=== PATIENT | female | born 1945 | race Caucasian/White ===

== ENCOUNTER 2018-11-27 23:07 | Observation (INO) ==
--- NOTE | 2018-11-27 23:33 | ERNOTE ---
Medical Problem HPI - Narrative Date of Service: 11/27/18 - General Chief Complaint: Fever Time Seen by Provider: 11/27/18 23:21 Source: patient Exam Limitations: no limitations - Immun/Allergies/Home Medications Immunizations: IMMUNIZATION HX Immunizations Up to Date Yes History of Influenza Vaccine Yes Hx Pneumococcal Vaccination No Allergies/Adverse Reactions: Allergies enalapril Allergy (Verified 11/25/18 09:55) rash/hives hydrochlorothiazide Allergy (Verified 11/25/18 09:55) uknown lisinopril Allergy (Verified 11/25/18 09:55) unknown ramipril [From Altace] Allergy (Verified 11/25/18 09:55) unknown Home Medications: HOME MEDICATIONS aspirin 81 mg tablet,delayed release 81 mg PO DAILY 10/29/17 [Last Taken Unknown] cholecalciferol (vitamin D3) 1,000 unit capsule 1,000 unit PO DAILY 10/29/17 [Last Taken Unknown] cinnamon bark 500 mg capsule 1,000 mg PO DAILY cap 10/29/17 [Last Taken Unknown] diltiazem CD 240 mg capsule,extended release 24 hr 240 mg PO DAILY 10/29/17 [Last Taken Unknown] vitamin B complex tablet 1 tab PO DAILY 10/29/17 [Last Taken Unknown] melatonin 3 mg tablet 3 mg PO HS 01/25/18 [Last Taken Unknown] metformin 500 mg tablet See Rx Instructions .ROUTE .COMPLEX #360 tablet 02/14/18 [Last Taken Unknown] ibuprofen 400 mg tablet 400 mg PO BID PRN #60 tab 04/01/18 [Last Taken Unknown] diphenhydramine 25 mg tablet 25 mg PO Q8H PRN #30 tab 06/13/18 [Last Taken Unknown] atorvastatin 40 mg tablet 80 mg PO DAILY #180 tab 08/31/18 [Last Taken Unknown] rabeprazole 20 mg tablet,delayed release 20 mg PO DAILY #90 tab 08/31/18 [Last Taken Unknown] potassium chloride ER 20 mEq tablet,extended release 40 meq PO ONCE #1 tab 11/24/18 [Last Taken Unknown] chlorthalidone 25 mg tablet 25 mg PO DAILY #90 tab 11/25/18 [Last Taken Unknown] glimepiride 4 mg tablet 8 mg PO DAILY #180 tab 11/25/18 [Last Taken Unknown] hydroxyzine HCl 25 mg tablet 25 mg PO Q8H PRN 11/25/18 [Last Taken Unknown] levothyroxine 50 mcg capsule 50 mcg PO DAILY #90 cap 11/25/18 [Last Taken Unknown] losartan 100 mg tablet 100 mg PO DAILY #90 tab 11/25/18 [Last Taken Unknown] sertraline 100 mg tablet 150 mg PO DAILY #135 tab 11/25/18 [Last Taken Unknown] sitagliptin 100 mg tablet 100 mg PO DAILY #90 tab 11/25/18 [Last Taken Unknown] - History of Present History Narrative: 73-year-old female comes in complaining of elevated temperature today she states she woke up this morning she was fine earlier in the day went for flu shot after the flu shot is she is been feeling she says crappy but nonspecific generalized aches and pains and a cough nonproductive and and vomited a few times Date (Duration): 11/27/18 Time (Timing): 23:30 Timing: constant Severity: moderate Review of Systems - Review of Systems Constitutional: Present: fever, weakness EYE: Present: no symptoms reported ENT: Present: no symptoms reported Respiratory: Present: cough Cardiology: Present: no symptoms reported Gastrointestinal/Abdominal: Present: no symptoms reported Genitourinary: Present: no symptoms reported Musculoskeletal: Present: no symptoms reported Skin: Present: no symptoms reported Neurological: Present: no symptoms reported Endocrine: Present: no symptoms reported Hematologic/Lymphatic: Present: no symptoms reported Psych: Present: no symptoms reported All Other Systems: All systems neg except as marked Medical History (Updated 10/24/18 @ 10:30 by Bret Mathews MD) 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) Wrist pain, left (Acute) Onset Date: ~08/2017 Anxiety and depression Onset Date: Unknown Aortic stenosis, moderate Onset Date: ~09/2016 Arthritis Onset Date: Unknown Diabetes Onset Date: 01/15/14 Type II Fracture, radius, distal 10/02/2016 Closed intra-articular fx distal end of rt radius, initial encounter GERD (gastroesophageal reflux disease) Onset Date: Unknown HTN (hypertension) Onset Date: Unknown Hyperlipidemia Onset Date: Unknown Obesity Onset Date: Unknown BMI -35.38 Sleep apnea Onset Date: 08/05/14 nasal CPAP 1 cm H20 (sleep studies) Surgical History: Surgical History (Updated 09/12/17 @ 10:46 by Shana Bautista) History of carpal tunnel release 11/08, 03/13 Right, left by Dr. López History of echocardiogram Onset Date: 10/21/15 ER 60-65% History of total knee arthroplasty Lt TKA (2006), Rt TKA (2011) History of total vaginal hysterectomy (TVH) Onset Date: ~06/1979 TVH/BSO Uterine tumor - benign Hx of cardiac catheterization 2006; 05/22/[address] Rodrigues [facility]-normal LV function, EF+65%, normal coronary arteriography, left dominant circulation Hx of colonoscopy 02/10/2011 Normal - Dr. Rainey Hx of hand surgery Trigger Finger Release - bilateral hands- unsure of date Hx of tonsillectomy Onset Date: ~1951 Family History: Family History (Updated 09/12/17 @ 10:47 by Shana Bautsita) Father , Age 93 Diabetes Heart disease Heart valve replacement age 85 Mother , Age 50 Diabetes Cancer Bone Ca Social History: (Last Reviewed 11/27/18 @ 23:19 by Sheila Moon RN) Social History: Marital status: household members: spouse current occupational status: retired Service: No Tobacco: Smoking Status: Never smoker Alcohol: alcohol intake: never Substance Use: substance use type: does not use Dietary Habits: caffeine: Yes caffeine comment: Current every day 1/day iced tea, diet pepsi, sunkist orange Physical Exam - Physical Exam General Appearance: Present: wd/wn, alert, mild distress Head Exam: Present: normal inspection, no evidence of injury Eye Exam: Normal inspection: bilateral Ears, Nose, Throat: Present: nasal congestion, dry mucous membranes Neck: Present: normal inspection, nontender Respiratory: Present: normal breath sounds, no accessory muscle use, chest nontender Cardiovascular/Chest: Present: tachycardia, systolic murmur Peripheral Pulses: N=norm/S=strong/W=weak/B=bound/A=absent: Carotid (R): Normal, Carotid (L): Normal Gastrointestinal/Abdominal: Present: normal bowel sounds, nontender Back Exam: Present: normal inspection, normal range of motion Extremity Exam: Present: normal inspection, normal except - Neurological Exam: Present: alert, oriented Skin Exam: Present: normal color, warm/dry Lymphatic Exam: Present: no adenopathy Progress - Results and Orders Patient's Lab Results:: I have reviewed the patient's lab results. Results and Orders: Laboratory Tests 11/27/18 11/27/18 11/27/18 23:32 23:32 23:33 WBC 6.7 RBC 4.44 Hgb 12.4 L Hct 37.6 MCV 84.7 MCH 27.9 Plt Count 186 Neutrophils % 87.3 H Lymphocytes % 6.1 L Sodium Plasma Sodium Potassium Chloride Carbon Dioxide BUN Creatinine Est GFR (Non-Af Amer) Random Glucose Lactic Acid, Venous Urine Color Yellow Urine Appearance Slightly cloudy Urine pH 8.0 H Urine Protein Negative Urine Glucose (UA) Negative Urine Ketones Negative Urine Blood Negative Urine Nitrate Negative Urine Bilirubin Negative Ur Leukocyte Esterase 25 H Urine RBC None seen Urine WBC 5-10 H Group A Strep Rapid Negative 11/27/18 11/27/18 23:55 23:55 WBC RBC Hgb Hct MCV MCH Plt Count Neutrophils % Lymphocytes % Sodium 134 Plasma Sodium 135 Potassium 3.4 Chloride 95 L Carbon Dioxide 30.2 BUN 18 Creatinine 1.24 Est GFR (Non-Af Amer) 45 L D Random Glucose 180 H Lactic Acid, Venous 2.2 H* Urine Color Urine Appearance Urine pH Urine Protein Urine Glucose (UA) Urine Ketones Urine Blood Urine Nitrate Urine Bilirubin Ur Leukocyte Esterase Urine RBC Urine WBC Group A Strep Rapid - Vital Signs Vital Signs: Vital Signs 11/27/18 23:15 Temperature 38.3 C H Pulse Rate 116 H Respiratory Rate 18 Blood Pressure 130/71 O2 Sat by Pulse Oximetry 94 - X-Ray X-Ray #1 X-Ray: chest Interpretation: Interp. by me X-ray Comments: Chronic changes no acute infiltrate - Progress/Reassessment Chief Complaint: Fever Plan - Plan Plan: Patient's fever is is trending upward at the moment probably because of the fluids lactic acid is 2.2 infection seems to be having a urinary tract was a high fever and the lactic acid we will put her admitted to observation overnight we will begin Cipro on her and plan will be to control the fever continue fluids antibiotics Dr. Marcio Cooper is been notified and accepted Departure Clinical Impression: UTI (urinary tract infection), SIRS (systemic inflammatory response syndrome) - Departure Disposition: Short Term Hospital Inpatient Condition: Stable Referrals: Leyda Gandhi MD [Primary Care Provider] -
[2018-11-27] MEDS ORDERED: ACETAMINOPHEN 325 MG TABLET PO ONE (23:34)
[2018-11-27] MEDS ORDERED: NORMAL SALINE 1,000 ML IV ONE (23:34)
[2018-11-27 23:46] LABS: Urine Bilirubin Negative (NEGATIVE); Urine Blood Negative /ul (NEGATIVE); Urine Ketone Negative (NEGATIVE); Urine Nitrite Negative (NEGATIVE); Urine Protein Negative (NEGATIVE); Urine Specific Gravity 1.015 SP.GR. (1.005-1.010); Urine Urobilinogen Normal (NORMAL)
[2018-11-27 23:58] LABS: Hematocrit 37.6 % (37.0-47.0); Hemoglobin 12.4 gm/dL (12.5-16.0); Mean Cell Volume 84.7 fl (78-100); Mean Corpuscular Hemoglobin 27.9 pg (27-31); Mean Platelet Volume 9.1 fl (8-12.5); Neutrophil # 5.8 K/mm3 (1.3-6.0); Neutrophil % 87.3 % (42-75.0); Platelet Count 186 K/mm3 (150-450); Red Blood Count 4.44 M/mm3 (4.2-5.4); Red Cell Distribution Width 13.4 % (11.5-14.0); White Blood Count 6.7 K/mm3 (4.0-10.5)
[2018-11-28 00:02] LABS: Urine Appearance Slightly Cloudy (CLEAR); Urine Bacteria 2+; Urine Color Yellow; Urine Fine Granular Cast 0-5 /LPF; Urine Mucus Moderate - 2+; Urine RBC None Seen /hpf (0-5); Urine Renal Epithelial Cell Few - 1+ /hpf
[2018-11-28 00:12] LABS: Albumin * 3.7 gm/dl (3.4-5.0); Anion Gap 12.2 mmol/L (6.8-13.8); BUN/Creatinine Ratio 14.5 (9.0-21.6); Bilirubin, Total 0.3 mg/dL (0.0-1.1); Ca. Corrected For Albumin 9.3 mg/dL (8.4-10.2); Calcium * 9.4 mg/dL (7.9-10.9); Carbon Dioxide 30.2 mmol/L (24-32.6); Potassium 3.4 mmol/L (3.4-4.6); Total Protein 7.8 gm/dL (6.2-8.2)
[2018-11-28] MEDS: CIPROFLOXACIN IN 5 % DEXTROSE 400 MG/200 ML BAG IV SCH ×3 (01:26→14:46)
[2018-11-28] MEDS: NORMAL SALINE 1,000 ML IV PRN (04:00)
[2018-11-28] MEDS ORDERED: IBUPROFEN 400 MG TABLET PO PRN (08:59)
[2018-11-28] MEDS ORDERED: diphenhydrAMINE HCL 25 MG CAPSULE PO PRN (08:59)
[2018-11-28] MEDS ORDERED: hydrOXYzine HCL 25 MG TABLET PO PRN (08:59)
[2018-11-28] MEDS ORDERED: MELATONIN 3,000 MCG TABLET PO PRN (08:59)
[2018-11-28] MEDS: ASPIRIN 81 MG TABLET.DR PO SCH (09:40)
[2018-11-28] MEDS: GLIMEPIRIDE 4 MG TABLET PO SCH (09:40)
--- NOTE | 2018-11-28 09:40 | HP ---
Chief Complaint - Chief Complaint Date of Service: 11/28/18 Time of Service: 09:32 Chief Complaint: I have fever, chills, and cough since yesterday History of Present Illness: 73-year-old female with past medical history of type 2 diabetes, hypertension, obstructive sleep apnea, depression, anxiety disorder, was evaluated in our ER for high fever, chills, and episode of vomiting that all started yesterday evening. Patient reports feeling fine throughout the weekend but became ill hours after receiving an influenza vaccine at [facility]. Patient that the vaccine on Wednesday morning and by Wednesday evening she developed a fever chills and vomited. Patient also reports feeling achy and weak since becoming sick. She denies any sick contacts or any recent travels and denies being sick recently. 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) Wrist pain, left (Acute) Onset Date: ~08/2017 Anxiety and depression Onset Date: Unknown Aortic stenosis, moderate Onset Date: ~09/2016 Arthritis Onset Date: Unknown Diabetes Onset Date: 01/15/14 Type II Fracture, radius, distal 10/02/2016 Closed intra-articular fx distal end of rt radius, initial encounter GERD (gastroesophageal reflux disease) Onset Date: Unknown HTN (hypertension) Onset Date: Unknown Hyperlipidemia Onset Date: Unknown Obesity Onset Date: Unknown BMI -35.38 Sleep apnea Onset Date: 08/05/14 nasal CPAP 1 cm H20 (sleep studies) Surgical History: Surgical History (Updated 09/12/17 @ 10:46 by Shana Bautista) History of carpal tunnel release 11/08, 03/13 Right, left by Dr. López History of echocardiogram Onset Date: 10/21/15 ER 60-65% History of total knee arthroplasty Lt TKA (2006), Rt TKA (2011) History of total vaginal hysterectomy (TVH) Onset Date: ~06/1979 TVH/BSO Uterine tumor - benign Hx of cardiac catheterization 2006; 05/22/[address] Rodrigues [facility]-normal LV function, EF+65%, normal coronary arteriography, left dominant circulation Hx of colonoscopy 02/10/2011 Normal - Dr. Rainey Hx of hand surgery Trigger Finger Release - bilateral hands- unsure of date Hx of tonsillectomy Onset Date: ~1951 Family History: Family History (Updated 09/12/17 @ 10:47 by Shana Bautista) Father , Age 93 Diabetes Heart disease Heart valve replacement age 85 Mother , Age 50 Diabetes Cancer Bone Ca Social History: (Last Reviewed 11/28/18 @ 01:42 by Artur Handley RN) Social History: Marital status: household members: spouse current occupational status: retired Service: No Tobacco: Smoking Status: Never smoker Alcohol: alcohol intake: never Substance Use: substance use type: does not use Dietary Habits: caffeine: Yes caffeine comment: Current every day 1/day iced tea, diet pepsi, sunkist orange Peds Patient Hx - Developmental: No Pertinent Hx Peds Patient Hx - Medical: No Pertinent Hx Peds Patient Hx - Cardiac/Respiratory: No Pertinent Hx Peds Patient Hx - Surgical: No Surgical History Patient History - Cancer: No Hx of Cancer Review Of Systems (GEN) - Review of Systems Generalized/Overall Review: Present: Weakness, Chills, Fever, Malaise EENTM: Present: No Symptoms Reported Respiratory: Present: Cough Cardiac: Present: No Symptoms Reported Abdominal: Present: Vomiting Genitourinary: Present: No Symptoms Reported Musculoskeletal: Present: Muscle Pain Neurological: Present: No Symptoms Reported Skin: Present: No Symptoms Reported Endocrine: Present: No Symptoms Reported Immunizations: IMMUNIZATION HX Immunizations Up to Date Yes History of Influenza Vaccine Yes Hx Pneumococcal Vaccination No Allergies/Adverse Reactions: Allergies Allergy/AdvReac Type Severity Reaction Status Date / Time enalapril Allergy rash/hives Verified 11/28/18 01:43 hydrochlorothiazide Allergy uknown Verified 11/28/18 01:43 lisinopril Allergy unknown Verified 11/28/18 01:43 ramipril [From Altace] Allergy unknown Verified 11/28/18 01:43 Home Medications: HOME MEDICATIONS aspirin 81 mg tablet,delayed release 81 mg PO DAILY 10/29/17 [Last Taken Unknown] cholecalciferol (vitamin D3) 1,000 unit capsule 1,000 unit PO DAILY 10/29/17 [Last Taken Unknown] cinnamon bark 500 mg capsule 1,000 mg PO DAILY cap 10/29/17 [Last Taken Unknown] vitamin B complex tablet 1 tab PO DAILY 10/29/17 [Last Taken Unknown] melatonin 3 mg tablet 3 mg PO HS PRN 01/25/18 [Last Taken Unknown] ibuprofen 400 mg tablet 400 mg PO BID PRN #60 tab 04/01/18 [Last Taken Unknown] diphenhydramine 25 mg tablet 25 mg PO Q8H PRN #30 tab 06/13/18 [Last Taken Unknown] atorvastatin 40 mg tablet 80 mg PO DAILY #180 tab 08/31/18 [Last Taken Unknown] rabeprazole 20 mg tablet,delayed release 20 mg PO DAILY #90 tab 08/31/18 [Last Taken Unknown] chlorthalidone 25 mg tablet 25 mg PO DAILY #90 tab 11/25/18 [Last Taken Unknown] glimepiride 4 mg tablet 8 mg PO DAILY #180 tab 11/25/18 [Last Taken Unknown] hydroxyzine HCl 25 mg tablet 25 mg PO Q8H PRN 11/25/18 [Last Taken Unknown] levothyroxine 50 mcg capsule 50 mcg PO DAILY #90 cap 11/25/18 [Last Taken Unknown] losartan 100 mg tablet 100 mg PO DAILY #90 tab 11/25/18 [Last Taken Unknown] sertraline 100 mg tablet 150 mg PO DAILY #135 tab 11/25/18 [Last Taken Unknown] sitagliptin 100 mg tablet 100 mg PO DAILY #90 tab 11/25/18 [Last Taken Unknown] metFORMIN HCL [Metformin HCl] 1,000 mg PO BID 11/28/18 [Last Taken Unknown] Exam - Exam Vital Signs: Vital Signs - Last Taken Temp 36.8 C 11/28/18 06:27 Pulse 66 11/28/18 06:27 Resp 16 11/28/18 06:27 BP 124/50 11/28/18 06:27 Pulse Ox 94 11/28/18 06:27 Constitutional: Present: Alert, Oriented x3, Cooperative, Well developed, Well nourished, No distress, Elderly ENT Exam: Present: normal ENT inspection, hearing grossly normal, pharynx normal, TMs normal Eye Exam: bilateral eye: normal inspection, PERRL, EOMI Neck: Present: non-tender, full range of motion, supple, normal inspection, trachea midline Back Exam: Present: normal inspection, no CVA tenderness, no vertebral tenderness Breasts: Present: Exam deferred Respiratory: Present: chest non-tender, lungs clear, normal breath sounds, no respiratory distress, no accessory muscle use Cardiovascular/Chest: Present: normal peripheral pulses, regular rate, rhythm, no chest tenderness, no edema, no gallop, no JVD, no rub, systolic murmur Peripheral Pulses: carotid (R): 3+, carotid (L): 3+, femoral (R): 3+, femoral (L): 3+, dorsalis-pedis (R): 3+, dorsalis-pedis (L): 3+ Abdomen: Present: Normal bowel sounds, soft, nontender, nondistended, no rebound tenderness, no hepatospenomegaly, no masses, obese /Rectal: Present: Exam deferred Extremity: Present: normal range of motion, non-tender, normal inspection, no pedal edema, no calf tenderness Skin Exam: Present: normal color, warm/dry, no cyanosis Lymphatic: Present: no adenopathy Neurologic: Present: 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 nml as tested, normal cerebellar test, no motor/sensory deficits, alert, normal mood/affect, oriented x 3 Appearance: Present: appropriate appearance, appropriate insight, neat, no memory impairment Eye contact: Present: cooperative, good eye contact, normal speech Thoughts: Present: normal thought pattern, no apparent hallucination Diagnostic Studies: Abnormal Lab Results 11/27/18 11/27/18 11/27/18 Range/Units 23:32 23:33 23:55 Hgb 12.4 L (12.5-16.0) gm/dL Neutrophils % 87.3 H (42-75.0) % Lymphocytes % 6.1 L (20-51) % Lymphocytes # 0.41 L (1.5-3.5) k/mm3 Chloride 95 L (97-106) mmol/L Est GFR (Non-Af Amer) 45 L D (60-130) mL/min Random Glucose 180 H (70-110) mg/dL Lactic Acid, Venous (0.4-2.0) mmol/L ALT 18 L (19-67) U/L Urine pH 8.0 H (5.0-7.0) pH Ur Leukocyte Esterase 25 H (NEGATIVE) /ul Urine WBC 5-10 H (0-5) /hpf Ur Renal Epithelial Cell Few - 1+ H (NONE) /hpf Urine Bacteria 2+ H (NONE) Fine Granular Casts 0-5 H (NONE) /LPF Urine Mucus Moderate - 2+ H (NONE) 11/27/18 11/28/18 Range/Units 23:55 02:34 Hgb (12.5-16.0) gm/dL Neutrophils % (42-75.0) % Lymphocytes % (20-51) % Lymphocytes # (1.5-3.5) k/mm3 Chloride (97-106) mmol/L Est GFR (Non-Af Amer) (60-130) mL/min Random Glucose (70-110) mg/dL Lactic Acid, Venous 2.2 H* 2.2 H* (0.4-2.0) mmol/L ALT (19-67) U/L Urine pH (5.0-7.0) pH Ur Leukocyte Esterase (NEGATIVE) /ul Urine WBC (0-5) /hpf Ur Renal Epithelial Cell (NONE) /hpf Urine Bacteria (NONE) Fine Granular Casts (NONE) /LPF Urine Mucus (NONE) Microbiology 11/28/18 00:03 Urine Culture - Preliminary Urine,Clean Catch No Growth Laboratory Results WBC 6.7 K/mm3 (4.0-10.5) 11/27/18 23:33 RBC 4.44 M/mm3 (4.2-5.4) 11/27/18 23:33 Hgb 12.4 gm/dL (12.5-16.0) L 11/27/18 23:33 Hct 37.6 % (37.0-47.0) 11/27/18 23:33 MCV 84.7 fl (78-100) 11/27/18 23:33 MCH 27.9 pg (27-31) 11/27/18 23:33 MCHC 33.0 g/dl (32-36) 11/27/18 23:33 RDW 13.4 % (11.5-14.0) 11/27/18 23:33 Plt Count 186 K/mm3 (150-450) 11/27/18 23:33 MPV 9.1 fl (8-12.5) 11/27/18 23:33 Immature Gran % (Auto) 0.30 % (0.001-0.429) 11/27/18 23:33 Immature Gran # (Auto) 0.02 K/mm3 (0.000-0.0310) 11/27/18 23:33 87.3 % (42-75.0) H 11/27/18 23:33 6.1 % (20-51) L 11/27/18 23:33 4.0 % (0.0-9) 11/27/18 23:33 1.9 % (0.0-3.0) 11/27/18 23:33 0.4 % (0.0-1.0) 11/27/18 23:33 Nucleated RBC % 0.0 k/mm3 (0-1) 11/27/18 23:33 5.8 K/mm3 (1.3-6.0) 11/27/18 23:33 0.41 k/mm3 (1.5-3.5) L 11/27/18 23:33 0.3 k/mm3 (0.0-1.0) 11/27/18 23:33 0.1 k/mm3 (0.0-0.7) 11/27/18 23:33 Absolute Basophils 0.0 k/mm3 (0.0-0.1) 11/27/18 23:33 Sodium 134 mmol/L (132-142) 11/27/18 23:55 135 mmol/L (130-142) 11/27/18 23:55 Potassium 3.4 mmol/L (3.4-4.6) 11/27/18 23:55 Chloride 95 mmol/L (97-106) L 11/27/18 23:55 Carbon Dioxide 30.2 mmol/L (24-32.6) 11/27/18 23:55 12.2 mmol/L (6.8-13.8) 11/27/18 23:55 BUN 18 mg/dL (3-23) 11/27/18 23:55 1.24 mg/dL (0.4-1.4) 11/27/18 23:55 Est GFR (Non-Af Amer) 45 mL/min (60-130) L D 11/27/18 23:55 14.5 (9.0-21.6) 11/27/18 23:55 180 mg/dL (70-110) H 11/27/18 23:55 2.2 mmol/L (0.4-2.0) H* 11/28/18 02:34 Calcium 9.4 mg/dL (7.9-10.9) 11/27/18 23:55 Calcium Adj for Albumin 9.3 mg/dL (8.4-10.2) 11/27/18 23:55 0.3 mg/dL (0.0-1.1) 11/27/18 23:55 AST 23 U/L (0-48) 11/27/18 23:55 ALT 18 U/L (19-67) L 11/27/18 23:55 117 U/L (50-170) 11/27/18 23:55 7.8 gm/dL (6.2-8.2) 11/27/18 23:55 3.7 gm/dl (3.4-5.0) 11/27/18 23:55 Yellow 11/27/18 23:32 Slightly cloudy (CLEAR) 11/27/18 23:32 8.0 pH (5.0-7.0) H 11/27/18 23:32 Ur Specific [place] 1.015 SP.GR. (1.005-1.010) 11/27/18 23:32 Negative mg/dL (NEGATIVE) 11/27/18 23:32 Negative mg/dL (NEGATIVE) 11/27/18 23:32 Negative mg/dL (NEGATIVE) 11/27/18 23:32 Negative /ul (NEGATIVE) 11/27/18 23:32 Negative (NEGATIVE) 11/27/18 23:32 Negative mg/dl (NEGATIVE) 11/27/18 23:32 Normal EU/dl (NORMAL) 11/27/18 23:32 Ur Leukocyte Esterase 25 /ul (NEGATIVE) H 11/27/18 23:32 None seen /hpf (0-5) 11/27/18 23:32 5-10 /hpf (0-5) H 11/27/18 23:32 Ur Epithelial Cells None seen /hpf (0-5) 11/27/18 23:32 Ur Renal Epithelial Cell Few - 1+ /hpf (NONE) H 11/27/18 23:32 2+ (NONE) H 11/27/18 23:32 Fine Granular Casts 0-5 /LPF (NONE) H 11/27/18 23:32 Moderate - 2+ (NONE) H 11/27/18 23:32 Culture to follow 11/27/18 23:32 Group A Strep Rapid Negative (NEGATIVE) 11/27/18 23:32 Assessment/Plan - Narrative Narrative: Patient was evaluated and medical chart was reviewed and decision to admit for observation in our [facility] was made. Patient had a positive lactic acid but was negative for leukocytosis, but given her appearance of mild dehydration no IV fluids were administered. Her fever vomiting and chills have resolved but patient still reports to feeling weak. She was also found to have a UTI on her urinalysis therefore urine culture was sent to laboratory and patient was started on IV antibiotics. Chest x-ray was negative for any pneumonia and only found chronic findings. Given these findings we will keep patient for observation and continue IV hydration IV antibiotics, will also follow-up with urine cultures in the morning. - Assessment/Plan (1) UTI (urinary tract infection) Problem: Acute (2) SIRS (systemic inflammatory response syndrome) Problem: Acute (3) Mild dehydration Problem: Acute (4) Diabetes 1.5, managed as type 2 Problem: Chronic (5) HTN (hypertension) Problem: Acute Qualifiers: Hypertension type: essential hypertension Qualified Code(s): I10 - Essential (primary) hypertension
[2018-11-28] MEDS: LEVOTHYROXINE SODIUM 50 MCG TABLET PO SCH (09:41)
[2018-11-28] MEDS: CHOLECALCIFEROL 1,000 UNIT CAPSULE PO SCH (09:41)
[2018-11-28] MEDS: LOSARTAN POTASSIUM 50 MG TABLET PO SCH (09:41)
[2018-11-28] MEDS: FAMOTIDINE 20 MG TABLET PO SCH (09:41)
[2018-11-28] MEDS: CHLORTHALIDONE 25 MG TABLET PO SCH (09:41)
[2018-11-28] MEDS: sitaGLIPtin PHOSPHATE 50 MG TABLET PO SCH (09:41)
[2018-11-28] MEDS: VITAMIN B COMP W-C 1 TAB TABLET PO SCH (09:41)
[2018-11-28] MEDS: ACETAMINOPHEN 325 MG TABLET PO PRN ×2 (09:42→16:19)
[2018-11-28] MEDS: SERTRALINE HCL 50 MG TABLET PO SCH (09:42)
[2018-11-28] MEDS ORDERED: ROSUVASTATIN CALCIUM 20 MG TABLET PO SCH (21:00)
[2018-11-29] MEDS: NORMAL SALINE 1,000 ML IV PRN (02:10)
[2018-11-29] MEDS: CIPROFLOXACIN IN 5 % DEXTROSE 400 MG/200 ML BAG IV SCH (02:10)
[2018-11-29] MEDS: LEVOTHYROXINE SODIUM 50 MCG TABLET PO SCH (06:49)
[2018-11-29] MEDS: ASPIRIN 81 MG TABLET.DR PO SCH (08:35)
[2018-11-29] MEDS: GLIMEPIRIDE 4 MG TABLET PO SCH (08:35)
[2018-11-29] MEDS: LOSARTAN POTASSIUM 50 MG TABLET PO SCH (08:36)
[2018-11-29] MEDS: VITAMIN B COMP W-C 1 TAB TABLET PO SCH (08:36)
[2018-11-29] MEDS: sitaGLIPtin PHOSPHATE 50 MG TABLET PO SCH (08:36)
[2018-11-29] MEDS: CHLORTHALIDONE 25 MG TABLET PO SCH (08:36)
[2018-11-29] MEDS: FAMOTIDINE 20 MG TABLET PO SCH (08:36)
[2018-11-29] MEDS: CHOLECALCIFEROL 1,000 UNIT CAPSULE PO SCH (08:37)
[2018-11-29] MEDS: SERTRALINE HCL 50 MG TABLET PO SCH (08:37)
--- NOTE | 2018-11-29 09:20 | DS ---
(1) UTI (urinary tract infection) Problem: Ruled-out (2) SIRS (systemic inflammatory response syndrome) Problem: Resolved (3) Mild dehydration Problem: Resolved (4) Diabetes 1.5, managed as type 2 Problem: Chronic (5) HTN (hypertension) Problem: Chronic Qualifiers: Hypertension type: essential hypertension Qualified Code(s): I10 - Essential (primary) hypertension Date of Discharge:: 11/29/18 Description of Stay: 73-year-old female admitted for Sirs and a UTI was evaluated at bedside was found to be afebrile and in no acute distress. Patient reports feeling much better this morning there has not been any recurrence of fever and she has maintained stable vitals. Her urine culture is negative for any growth of any bacteria therefore patient will not need any additional days of antibiotics. Given these findings decision to discharge patient home with instructions to follow-up with her PCP in a week was made. Procedures Performed: none Results and Findings: Pending Mircobiology Results 11/27/18 23:34 Blood Blood Culture - Preliminary No Growth 24 Hours 11/27/18 23:55 Blood Blood Culture - Preliminary NO GROWTH 24 HOURS Lab Pending Results 11/27/18 23:32: Urine Color Yellow, Urine Appearance Slightly cloudy, Urine pH 8.0 H, Ur Specific [place] 1.015, Urine Protein Negative, Urine Glucose (UA) Negative, Urine Ketones Negative, Urine Blood Negative, Urine Nitrate Negative, Urine Bilirubin Negative, Urine Urobilinogen Normal, Ur Leukocyte Esterase 25 H, Urine RBC None seen, Urine WBC 5-10 H, Ur Epithelial Cells None seen, Ur Renal Epithelial Cell Few - 1+ H, Urine Bacteria 2+ H, Fine Granular Casts 0-5 H, Urine Mucus Moderate - 2+ H, Urine Culture Comments Culture to follow 11/27/18 23:32: Group A Strep Rapid Negative 11/27/18 23:33: WBC 6.7, RBC 4.44, Hgb 12.4 L, Hct 37.6, MCV 84.7, MCH 27.9, MCHC 33.0, RDW 13.4, Plt Count 186, MPV 9.1, Immature Gran % (Auto) 0.30, Immature Gran # (Auto) 0.02, Neutrophils % 87.3 H, Lymphocytes % 6.1 L, Monocytes % 4.0, Eosinophils % 1.9, Basophils % 0.4, Nucleated RBC % 0.0, Neutrophils # 5.8, Lymphocytes # 0.41 L, Monocytes # 0.3, Eosinophils # 0.1, Absolute Basophils 0.0 11/27/18 23:55: Sodium 134, Plasma Sodium 135, Potassium 3.4, Chloride 95 L, Carbon Dioxide 30.2, Anion Gap 12.2, BUN 18, Creatinine 1.24, Est GFR (Non-Af Amer) 45 L D, BUN/Creatinine Ratio 14.5, Random Glucose 180 H, Calcium 9.4, Calcium Adj for Albumin 9.3, Total Bilirubin 0.3, AST 23, ALT 18 L, Alkaline Phosphatase 117, Total Protein 7.8, Albumin 3.7 11/27/18 23:55: Lactic Acid, Venous 2.2 H* 11/28/18 02:34: Lactic Acid, Venous 2.2 H* Discharge Location: Home Disposition: Home self-care Condition: Stable Face to Face Encounter completed per [facility] Guidelines: No Discharge Activity: Activity as tolerated Discharge Diet: Consistent carbs Referrals: Leyda Gandhi MD [Primary Care Provider] - Additional Patient Instructions (free text): -Please make TCM appointment unless retirement discharge, or if following up with outside provider. Thank you! Avril @ [facility] [address]24. Complete Home Medications List: Complete Home Medication List: aspirin 81 mg tablet,delayed release 81 mg PO DAILY 10/29/17 cholecalciferol (vitamin D3) 1,000 unit capsule 1,000 unit PO DAILY 10/29/17 cinnamon bark 500 mg capsule 1,000 mg PO DAILY cap 10/29/17 vitamin B complex 1 tab PO DAILY 10/29/17 melatonin 3 mg tablet 3 mg PO HS PRN 01/25/18 ibuprofen 400 mg tablet 400 mg PO BID PRN #60 tab 04/01/18 diphenhydramine HCl 25 mg tablet 25 mg PO Q8H PRN #30 tab 06/13/18 rabeprazole 20 mg tablet,delayed release 20 mg PO DAILY #90 tab 08/31/18 chlorthalidone 25 mg tablet 25 mg PO DAILY #90 tab 11/25/18 glimepiride 4 mg tablet 8 mg PO DAILY #180 tab 11/25/18 hydroxyzine HCl 25 mg tablet 25 mg PO Q8H PRN 11/25/18 levothyroxine 50 mcg capsule 50 mcg PO DAILY #90 cap 11/25/18 losartan 100 mg tablet 100 mg PO DAILY #90 tab 11/25/18 sertraline 100 mg tablet 150 mg PO DAILY #135 tab 11/25/18 sitagliptin 100 mg tablet 100 mg PO DAILY #90 tab 11/25/18 metFORMIN HCL [Metformin HCl] 1,000 mg PO BID 11/28/18 Rosuvastatin Calcium [Crestor] 40 mg PO HS tab 11/29/18
[2018-11-29 11:40] VITALS: BP 147/66
== END 2018-11-29 11:30 | disposition home or self-care (01) ==
LOC: ER 23:07 → MS 23:07
PROVIDERS: ADMIT Internal Medicine; ATTEND Family Medicine
CPT/HCPCS: 36415; 71020; 71046; 80053; 81001; 83605; 85025; 87040; 87081; 87086; 87430; 96365; 96366; 99285; G0378